=== PATIENT | male | born 1995 | race Caucasian/White ===

== ENCOUNTER 2022-09-29 08:15 | Emergency (ER) | payer OTHER, SELFPAY ==
[2022-09-29 08:24] VITALS: BP 98/50; PULSE 64; RESP 18; TEMP 36.3; O2SAT 100
--- NOTE | 2022-09-29 08:41 | ED.URI ---
HPI - URI/Sore Throat General Chief Complaint: Upper Respiratory Infection Stated Complaint: Sore Throat Time Seen by Provider: 09/29/22 08:40 Source: patient, RN notes reviewed and old records reviewed Mode of arrival: ambulatory Limitations: no limitations History of Present Illness HPI Narrative: 27 year old male presents to [facility] care with complaints of sore throat for the past 3 days with increased pain with swallowing and at bedtime. Patient reports that he has had some increase in his nasal drainage which is thick white drainage, reports that his voice is raspy. Patient has not taken any OTC medications for his symptoms. Throat is red with no lesions noted tonsils not present. Patient denies any known exposure to any sick contacts. MD elicited complaint: sore throat, rhinorrhea and nasal congestion Pertinent past history: other (Tonsillectomy and Adenoidectomy) Onset (ago): day(s) (3 days) Consistency: constant Pain scale (0-10): 4 Description of mucous: other (thick white mucous) Able to tolerate fluids by mouth: Yes Exacerbating factors: swallowing Treatments prior to arrival: none Related Data Home Medications Medication Instructions Recorded Confirmed No Home Medications 09/29/22 09/29/22 Allergies Allergy/AdvReac Type Severity Reaction Status Date / Time Penicillins Allergy Intermediate Hives / Verified 09/29/22 08:33 Red Face Review of Systems Review of Systems: CONSTITUTIONAL: Denies malaise, chills, sweats, or fever. EYES: Denies visual changes, redness, or discharge. ENT: Reports rhinorrhea, congestion, no sinus pain,no otalgia, positive for sore throat. CARDIOVASCULAR: Denies chest pain, palpitations, or edema. RESPIRATORY: Reports no cough.? Denies dyspnea. GASTROINTESTINAL: Denies abdominal pain, nausea, vomiting, diarrhea SKIN: Denies rash or itching. MUSCULOSKELETAL: Denies myalgia. NEUROLOGIC: Denies headache. All systems reviewed & are unremarkable except as noted in HPI and below PMFSH Past Medical History Medical History (Updated 09/29/22 @ 09:20 by Jodi Perez NP) Strep throat Surgical History Surgical History (Updated 09/29/22 @ 08:56 by Jodi Perez NP) History of tonsillectomy and adenoidectomy Social History Social History (Updated 09/29/22 @ 08:57 by Jodi Perez NP) Smoking status: Current every day smoker Tobacco type: smokeless tobacco Smokeless tobacco user: chewing tobacco Alcohol use details: none Substance use type: does not use Living arrangements: with family Gender identity (if verbalized by the patient): Male Comments At time of signature, agree with nursing past medical, surgical, social and family history. There is no relevant family history pertinent to the presenting complaint Exam Narrative: GENERAL: Well-appearing, well-nourished, and in no acute distress. HEAD: Normocephalic EYES: PERRLA, conjunctivae clear ENT: Nares clear, turbinates edematous and erythematous, white thick discharge. Mucous membranes moist. TM pearly gonzalez with dull light reflex bilaterally; no tragal tenderness. Oropharynx erythematous without lesions. Tonsils not present and without exudate, no drooling, no hoarseness, no trismus, uvula midline. NECK: Supple.positive for lymphadenopathy especially left side with no tenderness voiced on palpation. CHEST: Clear to auscultation, breath sounds equal. No wheezing, rhonchi, rales, or stridor. No respiratory distress, speaks in full sentences.SAO2 100% on room air HEART: Regular rate and rhythm. No murmur heard. SKIN: Warm, dry, no rash. NEURO: Alert and oriented x3. PSYCH: Normal mood and affect Course Course Emergency Course: Patient is aware of diagnosis, understands and agrees to treatment plan.? Anticipatory guidance given.? Patient agrees to follow-up as directed and is aware of reasons to seek care at the emergency department. Portions of this r
== END 2022-09-29 09:13 | disposition home or self-care (01) ==
PROVIDERS: Emergency Provider Registered Nurse
DX: J06.9 Acute upper respiratory infection, unspecified (principal); Z20.822 Contact with and (suspected) exposure to COVID-19; F17.220 Nicotine dependence, chewing tobacco, uncomplicated
CPT/HCPCS: 87081; 87426; 87880; 99203; C9803; G0463